=== PATIENT | male | born 1975 | race Caucasian/White ===

== ENCOUNTER 2025-06-14 10:33 | Emergency (ER) | payer BC, SELFPAY ==
[2025-06-14 10:36] VITALS: BP 145/94
[2025-06-14 10:46] VITALS: BP 151/94
--- NOTE | 2025-06-14 11:19 | ED.GENMED ---
History of Present Illness
General
Chief Complaint: Abdominal Pain
Time Seen by Provider: 06/14/25 11:19
History of Present Illness
History of Present Illness:
FOCUSED PAST MEDICAL HISTORY
- Has had prostatitis, GERD, SIBO
REVIEW OF OLD RECORDS
- I reviewed records, lab work in 2022 was normal
Note:
CHIEF COMPLAINT(S)
Severe dizziness, muscle weakness, fatigue, tingling in limbs, abdominal discomfort.
HISTORY OF PRESENT ILLNESS
The patient is a 50-year-old male who presents with severe dizziness and a sensation of muscle weakness, described as feeling like the body is shutting down. He reports a history of small intestinal bacterial overgrowth (SIBO), which was diagnosed
via a breath test through his solar electric practitioner. Currently, the patient is on treatment with antibiotics Rifaximin and Metronidazole for the past eight days. Before starting antibiotics, the patient experienced significant bloating and severe
constipation. He notes that his symptoms have worsened since starting the antibiotics, stating, 'I never felt like this before.' The patient also reports spitting brown mucus in the morning, long-standing acid reflux, and recently soft stools, with
symptoms persisting for about two years. He recently changed from Omeprazole to a newer medication called Voquezna described as a stronger alternative like a proton pump inhibitor.
PAST MEDICAL AND SURIGICAL HISTORY
The patient has been dealing with acid reflux over his lifetime and has no history of abdominal surgeries.
CHRONIC MEDICAL CONDITIONS SIGNIFICANTLY AFFECTING CARE
Gastroesophageal reflux disease (GERD) and small intestinal bacterial overgrowth (SIBO).
SOCIAL DETERMINANTS AFFECTING HEALTH
The patient lives in [place] and works at [employer] in [place]. He drove himself to the hospital from work, which is 10 minutes away.
MEDICATIONS
- Rifaximin
- Metronidazole
- Questra (proton pump inhibitor substitute)
REVIEW OF SYSTEMS
- Gastrointestinal: Severe bloating, constipation, abdominal pinching sensation, soft stools.
- Musculoskeletal: Muscle weakness, initially milder, now significantly worse.
- Neurological: Severe dizziness, tingling sensation in limbs.
- Respiratory: Morning brown mucus production.
PHYSICAL EXAM
General: Alert, reports feeling like passing out, but in no acute distress.
Musculoskeletal: Muscle weakness reported, present bilaterally with tingling.
Neurological: No focal neurological deficit observed, but patient reports severe dizziness and tingling in extremities.
PROBLEM LIST
Acute:
- Severe dizziness
- Muscle weakness
- Tingling in limbs
- Worsened abdominal symptoms post-antibiotic initiation
Chronic:
- Gastroesophageal reflux disease (GERD)
- Small intestinal bacterial overgrowth (SIBO)
PLAN
- Order a CT scan of the abdomen to assess any serious abdominal condition.
- Perform blood work for further evaluations.
- Administer intravenous fluids.
DIFFERENTIAL DIAGNOSIS
The Differential Diagnosis includes, in no particular order and is not limited to:
- Small intestinal bacterial overgrowth (SIBO)
- Adverse reaction to antibiotics
- Electrolyte imbalance
- Gastroenteritis
- Irritable bowel syndrome (IBS)
- Abdominal hernia
- Peptic ulcer disease
- Gastroesophageal reflux disease exacerbation
- Pancreatic insufficiency
- Neurological disorder affecting balance and coordination
RADIOLOGY
- Given patient's significant symptoms, we will obtain CT imaging
EKG
-
LABS
- White count and CRP unremarkable, chemistries unremarkable
UPDATE
-SUMMARY OF ENCOUNTER
The patient, a 50-year-old male, was seen in the emergency department for severe dizziness, muscle weakness, fatigue, tingling in limbs, and abdominal discomfort. He has a history of small intestinal bacterial overgrowth (SIBO) and is currently on
Rifaximin and Metronidazole. Since starting antibiotics, his symptoms have worsened. A CT scan of the abdomen revealed minor wall thickening in the small and large intestines, specifically on the left side, suggesting localized inflammation but no
bowel obstruction or abscess. The patient was administered intravenous fluids to ensure proper hydration. Blood work including white blood cell count, C-reactive protein, and electrolytes were within normal limits.
DISPOSITION
Discharge
ASSESSMENT
The localized inflammation seen on the CT scan may be related to previous SIBO diagnosis and/or brought on by the antibiotic treatment. There is no evidence from the CT scan or lab work to suggest any severe infection or life-threatening condition.
EMERGENCY TREATMENTS ADMINISTERED
Intravenous fluids
PLAN
The patient is referred to see a solar electric practitioner for further evaluation and management concerning ongoing gastrointestinal symptoms. A suggestion was made to try a dose of intravenous ketorolac before departure for additional relief from
inflammation.
INDEPENDENT REVIEW OF LABS AND INTERPRETATION OF TESTS
My independent review of blood work including white blood cell count, C-reactive protein, and electrolytes is that they are within normal limits. My independent CT scan interpretation shows minor wall thickening in the small and large intestines on
the left side, consistent with localized inflammation without signs of bowel obstruction or abscess.
PATIENT EDUCATION AND COUNSELING
The patient was informed about the CT findings indicating minor inflammation and reassured that there is no evidence of acute or severe infection. Discussion about potential involvement of his past SIBO with current symptoms was made, advising
follow-up with a solar electric practitioner for ongoing care.
FOLLOW-UP INSTRUCTIONS
The patient was advised to schedule a follow-up visit with a solar electric practitioner.
MEDICATION RECONCILIATION
The patient was administered intravenous fluids during the visit. A discussion was held about administering a low dose of intravenous ketorolac before discharge for managing inflammation.
MEDICAL DECISION MAKING
-Complexity of Data Reviewed: Chronic conditions affecting care include gastroesophageal reflux disease (GERD) and small intestinal bacterial overgrowth (SIBO). Differential Diagnoses include adverse reaction to antibiotics, electrolyte imbalance,
gastroenteritis, irritable bowel syndrome (IBS), and peptic ulcer disease.
-Data:
Category 1
Non-emergency department records reviewed, included the patients outpatient pharmacy records.
Category 2
My independent interpretation of the CT scan of the abdomen shows minor wall thickening in the intestines indicating localized inflammation.
-Risk:
Consideration of Admission/Observation: Escalation of care including admission/observation was considered given the complexity and risk of the patients presenting complaint. However, with normal lab findings and stable vital signs upon
re-evaluation, outpatient management was deemed appropriate with close follow-up.
DIAGNOSIS
Localized intestinal inflammation, possibly related to SIBO (R10.9, K59.1).
Past History
Past History
ED Past Medical History: Other (prostatitis)
ED Past Surgical History: Other (Surgery to correct hypospadias)
Social History
Tobacco: Non-smoker
Drug: None
Personal: Single
Living: with family
Employment: Employed
Family History
Family History: Other
Phy Exam
Physical Exam
Physical Exam:
See HPI
Course
Orders/Labs/Results
Orders:
Orders
06/14/25 11:27
0.9% Sodium Chloride 1000 ml [Nss] 1,000 ml IV BOLUS
06/14/25 11:30
Electrocardiogram (*1) Urgent
Reason for Study: Abnormal EKG
EKG- Treatment ONCE
06/14/25 11:33
CPK [Creatine Phosphokinase] Urgent
CRP [C-Reactive Protein] Urgent
Complete Blood Count/No Diff Urgent
Comprehensive Metabolic Panel Urgent
Lipase Urgent
06/14/25 11:35
Ondansetron Injectable [Zofran] 4 mg .ROUTE .STK-MED ONE
06/14/25 11:37
Ondansetron Injectable [Zofran] 4 mg IV NOW STA
06/14/25 12:36
CT Abd/pelvis W Iv Cont Urgent
Comment:
Reason For Exam: diffuse abd pain worsening
06/14/25 14:17
Ketorolac [Toradol] 15 mg IV NOW STA
Abnormal Lab Results
06/14/25
11:33
MPV 11.1 H fL
(7.4-10.4)
Carbon Dioxide 31 H mmol/L
(22-30)
Glucose 117 H mg/dl
(70-99)
ALT 52 H U/L
(0-50)
06/14/25 11:33
06/14/25 11:33
Vital Signs
Initial and Last Documented VS:
Initial Vital Signs
Temp Pulse Resp BP Pulse Ox
36.6 C 91 16 145/94 99
06/14/25 10:36 06/14/25 10:36 06/14/25 10:36 06/14/25 10:36 06/14/25 10:36
Last Documented Vital Signs
Temp Pulse Resp BP Pulse Ox
36.6 C 77 16 151/94 100
06/14/25 10:36 06/14/25 10:46 06/14/25 10:46 06/14/25 10:46 06/14/25 11:20
*Pulse Oximetry
SaO2: 100
Oxygen Mode of Delivery: Room air
Patient hypoxic: no
*Critical Care Note
Total Time (30-74mins, 75-104mins- exclusive of procedures): Not Applicable
ED Attending Note
-
Portions of this chart may have been created with voice recognition software.� Occasional wrong word or��sound alike� substitutions may have occurred due to the inherent limitations of voice recognition software.
Discharge Plan
Departure
Prescriptions:
No Action
Voquezna 20 mg Tablet
20 mg PO DAILY
metronidazole [Metrazole] 250 mg Tablet
250 mg PO Q12H
Rx Instructions:
started last week
rifaximin 550 mg Tablet
550 mg PO TID
Referrals:
[facility] [Other]
Interventions
Interventions:
*Risk Screen - Suicide Last Done: 06/14/25 10:36
*Neglect/Abuse Screening Last Done: 06/14/25 10:36
VH-Fbsdtk-Lpicecwwyx Assessment Last Done: 06/14/25 12:15
Discharge Date and Time
Print Language: PASHTO
[2025-06-14] MEDS: ZOFRAN 4 MG IV (11:41)
[2025-06-14] MEDS: NSS 1000 IV (11:42)
[2025-06-14 11:54] LABS: Hematocrit 44.8 % (39.0-52.0); Hemoglobin 15.3 g/dL (13.0-18.0); Mean Corp Hgb Conc. 34.2 g/dL (33.0-37.0); Mean Corpuscular Volume 87.2 fL (80.0-94.0); Platelet Count 173 10^3/uL (130-400); Red Cell Dist. Width 12.7 % (11.5-14.5)
[2025-06-14 12:08] VITALS: BMI 20.9
[2025-06-14 12:15] LABS: ALT (SGPT) 52 U/L (0-50); AST (SGOT) 47 U/L (17-59); Albumin 4.5 g/dl (3.5-5.0); Alkaline Phosphatase 56 U/L (38-126); Blood Urea Nitrogen 14 mg/dl (9-20); Calcium 9.7 mg/dl (8.4-10.2); Carbon Dioxide 31 mmol/L (22-30); Chloride 103 mmol/L (98-107); Estimated Creatinine Clearance 109 ml/min; Glucose 117 mg/dl (70-99); Lipase 61 U/L (23-300); Potassium 4.2 mmol/L (3.5-5.1); Sodium 139 mmol/L (135-145); Total Protein 7.3 g/dl (6.3-8.2); eGFR > 60.00
[2025-06-14 12:18] LABS: C-Reactive Protein < 5.00 mg/L (0.0-10.00)
[2025-06-14] MEDS: TORADOL 15 MG IV (14:24)
== END 2025-06-14 14:41 | disposition home or self-care (01) ==
LOC: EMR 10:33
PROVIDERS: EMERGENCY PHYSICIAN Emergency Medicine
DX: R10.9 Unspecified abdominal pain (principal); K21.9 Gastro-esophageal reflux disease without esophagitis
CPT/HCPCS: 99284; 96374; 96375; 96361; 74177; 80053; 82550; 83690; 85027; 86140; 93005; Q9967

== ENCOUNTER 2025-08-05 15:03 | Emergency (ER) | payer BC, SELFPAY ==
[2025-08-05 15:11] VITALS: BP 120/76
[2025-08-05 15:32] VITALS: BMI 20.2
[2025-08-05 15:42] LABS: Urine Character Clear (Clear)
[2025-08-05 15:51] LABS: Hematocrit 41.6 % (39.0-52.0); Hemoglobin 14.4 g/dL (13.0-18.0); Mean Corp Hgb Conc. 34.6 g/dL (33.0-37.0); Mean Corpuscular Volume 84.9 fL (80.0-94.0); Nucleated Red Blood Cells % 0 % (-); Platelet Count 198 10^3/uL (130-400); Red Cell Dist. Width 12.4 % (11.5-14.5)
[2025-08-05 15:53] LABS: Urine Red Blood Cell 0-2 /HPF (0-2); Urine Squamous Cell 0-2 /LPF (Few); Urine White Cell 0-2 /HPF (0-5)
[2025-08-05 16:04] LABS: ALT (SGPT) 20 U/L (0-50); AST (SGOT) 24 U/L (17-59); Albumin 4.6 g/dl (3.5-5.0); Alkaline Phosphatase 46 U/L (38-126); Blood Urea Nitrogen 12 mg/dl (9-20); Calcium 9.2 mg/dl (8.4-10.2); Carbon Dioxide 31 mmol/L (22-30); Chloride 101 mmol/L (98-107); Estimated Creatinine Clearance 76 ml/min; Glucose 129 mg/dl (70-99); Lipase 74 U/L (23-300); Potassium 4.2 mmol/L (3.5-5.1); Sodium 136 mmol/L (135-145); Total Protein 7.2 g/dl (6.3-8.2); eGFR > 60.00
[2025-08-05] MEDS: NSS 1000 IV (16:10)
--- NOTE | 2025-08-05 16:42 | ED.GENMED ---
History of Present Illness
General
Chief Complaint: Dizziness
Source: patient
Exam Limitations: none
Time Seen by Provider: 08/05/25 15:22
Nursing documentation reviewed up to this point in time: agreed with
History of Present Illness
History of Present Illness:
see MDM
Past History
Past History
ED Past Medical History: Other (prostatitis)
ED Past Surgical History: Other (Surgery to correct hypospadias)
Social History
Tobacco: Non-smoker
Drug: None
Personal: Single
Living: with family
Employment: Employed
Family History
Family History: Other
Phy Exam
Physical Exam
Physical Exam:
see MDM
Course
Orders/Labs/Results
Orders:
Orders
08/05/25 15:17
EKG [Electrocardiogram (*1)] Urgent
Reason for Study: Vertigo / Dizzy
08/05/25 15:18
EKG- Treatment ONCE
08/05/25 15:25
Urine Microscopic Reflex Cult Urgent
Urine Reflex Culture from UA [Urinalysis Reflex To Culture] Urgent
Date Specimen was Collected: 08/05/25
Time Specimen was Collected: 15:24
Urine Culture Urgent
JORDY Source: U
Specimen Description:
Date Specimen was Collected: 08/05/25
Time Specimen was Collected: 15:24
08/05/25 15:43
Complete Blood Count/With Diff Urgent
Comprehensive Metabolic Panel Urgent
Lipase Urgent
08/05/25 16:04
Obstruct Series W/PA Chest [CR Obstruct Series W/pa Chest] Urgent
Comment:
Reason For Exam: constpiation
08/05/25 16:05
0.9% Sodium Chloride 1000 ml [Nss] 1,000 ml IV BOLUS
08/05/25 16:40
Enema- Treatment ONCE
Type: Milk of Molasses
Abnormal Lab Results
08/05/25 08/05/25
15: 15:43
WBC 4.7 L 10^3/uL
(4.8-10.8)
MPV 10.6 H fL
(7.4-10.4)
Absolute Lymphs (auto) 0.9 L 10^3/uL
(1.2-3.4)
Lymphocytes % 18.4 L %
(20.5-51.1)
Carbon Dioxide 31 H mmol/L
(22-30)
Glucose 129 H mg/dl
(70-99)
Leukocyte Esterase Rfl 1+ A
(Negative)
Urine Bacteria (Reflex) Few A
(Negative)
08/05/25 15:43
08/05/25 15:43
Vital Signs
Initial and Last Documented VS:
Initial Vital Signs
Temp Pulse Resp BP Pulse Ox
36.7 C 77 20 120/76 100
08/05/25 15:11 08/05/25 15:11 08/05/25 15:11 08/05/25 15:11 08/05/25 15:11
Last Documented Vital Signs
Temp Pulse Resp BP Pulse Ox
36.7 C 77 20 120/76 100
08/05/25 15:11 08/05/25 15:11 08/05/25 15:11 08/05/25 15:11 08/05/25 16:45
MDM/Problems Addressed
Differential Diagnosis Includes:
see MDM
MDM/Problems Addressed:
Note:
CHIEF COMPLAINT(S)
Persistent constipation, bloating, nausea, and intermittent dizziness.
HISTORY OF PRESENT ILLNESS
The patient is a 50-year-old male with a history of gastroesophageal reflux disease (GERD) presenting with a three to four-month history of gastrointestinal issues, predominantly severe constipation and bloating. Initially, the patient discontinued
omeprazole, a proton pump inhibitor, leading to severe acid reflux symptoms which prompted reinitiation of the medication under his gastroenterologists guidance. Subsequently, the patient was diagnosed with small intestinal bacterial overgrowth
(SIBO) via a breath test and treated with antibiotics including rifaximin and metronidazole, which the patient associates with worsening constipation. The patient describes severe rectal pain and bloating after inadequate bowel movements despite
using multiple laxatives, including linaclotide, docusate sodium, sennosides, and polyethylene glycol 3350.
The patient recently experienced dizziness, pressure in the head, heart palpitations, and general malaise, which prompted today�s emergency visit, fearing a potential bowel obstruction. The patient expresses fear of eating due to worsening
constipation symptoms and adopts a liquid diet at times. He mentions psychological distress and concern for potential future perforation due to bowel habits and intestinal health. Recent colonoscopy and upper endoscopy yielded findings such as
reflux and irritation, though no obstruction was noted.
SOCIAL DETERMINANTS AFFECTING HEALTH
The patient expresses significant psychological distress linked to chronic constipation and gastrointestinal symptoms, fearing that his inability to manage these symptoms is impacting his mental health.
REVIEW OF SYSTEMS
- Gastrointestinal: Severe constipation, bloating on the left side, occasional difficulty with defecation, requiring multiple laxative use.
- Neurological: Episodes of dizziness, described as feeling faint and experiencing head pressure.
- Psychological: Significant distress related to chronic gastrointestinal symptoms and management.
PHYSICAL EXAM
GENERAL: Alert , in no apparent distress
EYE: pupils equal and reactive
NECK: Supple
ENT: o/p clr, mmm.
CARDIAC: Regular rate and rhythm .
LUNGS: Clear breath sounds bilaterally, no acute respiratory distress, no wheezes/rales/rhonchi
ABDOMEN: Soft, without focal tenderness, no r/g, no cvat, normal bowel sounds
NEUROLOGICAL: Alert and oriented, no focal neuro deficits
SKIN: Warm and dry, skin intact.
MUSCULOSKELETAL: No edema, well perfused. neg lilliana's sign
PSYCH: Normal and appropriate interaction.
PROBLEM LIST
Acute:
- Constipation with potential risk of obstruction
- Intermittent dizziness and associated symptoms
Chronic:
- Gastroesophageal reflux disease
- Small intestinal bacterial overgrowth
PLAN
- Obtain basic blood work to assess for dehydration and electrolyte imbalances.
- Perform an abdominal X-ray to evaluate for the presence of stool burden and exclude bowel obstruction.
- Administer intravenous fluids to address potential dehydration.
- Continue current medications as per gastroenterology guidance and consider further gastroenterology follow-up for symptom management.
- Consider discussing mental health support with the patient to address distress related to chronic symptoms.
DIFFERENTIAL DIAGNOSIS
The Differential Diagnosis includes, in no particular order and is not limited to:
1. Chronic constipation secondary to functional bowel disorder
2. Bowel obstruction
3. Small intestinal bacterial overgrowth (SIBO)
4. Chronic gastrointestinal dysbiosis
5. Electrolyte imbalance
6. Anxiety-induced gastrointestinal symptoms
7. Medication side effects
8. Irritable bowel syndrome
9. Gastroesophageal reflux disease exacerbation
10. Psychological distress impacting bowel habits
cchronic constipation and gerd
in touch with his GI
recent colonoscopy and endoscopy[
no real relief on linzess and other meds
pt is very frustrated and emotional
last went 2 days ago
felt lightheaded today no cp, no sob no syncope
some mild nauesa
this is ongoing chronic problem
labs reviewed, no signficiatn abnormalitles
CARE-UPDATE
08/05/25 - 16:51
The patient has moderate stool accumulation in the rectum but no signs of obstruction. The consulting GI doctor dr. hays recommends enemas as a temporary relief measure. The patient has declined an immediate in-office milk and molasses enema but
has been advised to use [id number] fleet enemas at home. This approach may provide necessary relief to allow oral medications to work effectively. The patients urine results show no signs of infection, likely indicating dehydration without
significant leukocytes, nitrites, or blood. Further follow-up with the GI specialist has been advised, and plans for a disc with X-ray reports for consultation have been discussed. The physician emphasized the need to manage the chronic nature of
the condition, despite the patients understandable frustration and distress.
*Pulse Oximetry
SaO2: 100
Oxygen Mode of Delivery: Room air
Patient hypoxic: no
*Critical Care Note
Total Time (30-74mins, 75-104mins- exclusive of procedures): Not Applicable
ED Attending Note
-
Portions of this chart may have been created with voice recognition software.� Occasional wrong word or��sound alike� substitutions may have occurred due to the inherent limitations of voice recognition software.
Discharge Plan
Departure
Patient Disposition: Home (Routine Discharge)
Date of Disposition: 08/05/25
Time of Disposition: 16:52
Patient with high blood pressure during this ER visit?: No
Condition: Fair
Covid-19: Not Applicable
Discharge Problem:
Constipation
Instructions: Constipation in adults - ED (DC)
Prescriptions:
No Action
Voquezna 20 mg Tablet
20 mg PO DAILY
metronidazole [Metrazole] 250 mg Tablet
250 mg PO Q12H
Rx Instructions:
started last week
rifaximin 550 mg Tablet
550 mg PO TID
Referrals:
Nicanor Talbot MD [Family Provider, Family Practice]
Activity Restrictions/Additional Instructions:
Try a Fleet enema at home tonight and maybe even tomorrow to help with your constipation.
Return for fever, vomiting, severe pain, or any concerns. Otherwise follow-up with your family doctor and your GI doctor.
Interventions
Interventions:
*Risk Screen - Suicide Last Done: 08/05/25 15:11
*General Assessment Last Done: 08/05/25 15:11
*Neglect/Abuse Screening Last Done: 08/05/25 15:11
*ED COVID-19 Vaccine History Last Done: 08/05/25 17:13
*ED Influenza Vaccine History Last Done: 08/05/25 15:11
[facility] Fall Risk Assessment Tool Last Done: 08/05/25 16:46
*Nursing Disposition Last Done: 08/05/25 17:13
ED- Neurological Assessment Last Done: 08/05/25 15:32
ED- Cardiac Assessment Last Done: 08/05/25 17:14
ED Swallowing Screen Last Done: 08/05/25 15:32
Discharge Date and Time
Discharge Date/Time: 08/05/25 17:17
Print Language: DIVEHI
--- NOTE | 2025-08-05 16:45 | EDRN ---
Radha QUEEN in room w/ pt at this time. Pt received from protocol area w/ report given to this RN who took over pt's care at this time from Glenn Urban RN
== END 2025-08-05 17:17 | disposition home or self-care (01) ==
LOC: EMR 15:03
PROVIDERS: Physician Assistant; EMERGENCY PHYSICIAN Emergency Medicine; FAMILY PHYSICIAN Family Medicine
DX: K59.00 Constipation, unspecified (principal); R42 Dizziness and giddiness
CPT/HCPCS: 96360; 99284; 74022; 80053; 81003; 81015; 83690; 85025; 87086; 93005